=== PATIENT | female | born 1975 | race Native Hawaiian/Other Pacific Islander ===

== ENCOUNTER 2020-05-17 15:33 | Emergency (ER) | payer OTHER ==
[~2020-05-17] VITALS: Ht 154.9 cm; Wt 93.4 kg
[2020-05-17 15:42] VITALS: TEMP 98.1
[2020-05-17 18:00] VITALS: BP 138/77
== END 2020-05-17 18:00 | disposition home or self-care (01) ==
LOC: ED 15:33
PROC: 2W3LX1Z Immobilization of Right Lower Extremity using Splint (ICD-10-PCS; principal; 2020-05-17)
DX: M25.561 Pain in right knee (principal)
CPT/HCPCS: 99283